=== PATIENT | female | born 1965 | race Native Hawaiian/Other Pacific Islander ===

== ENCOUNTER 2024-10-01 13:23 | Emergency (ER) | payer OTHER, SELFPAY ==
[2024-10-01 13:33] VITALS: BP 143/83; PULSE 107; RESP 16; TEMP 36.2; O2SAT 97; BMI 31.9
--- NOTE | 2024-10-01 14:15 | ED_ITS ---
HPI - General Adult General Date Seen: 10/01/24 Chief complaint: Ear/Nose/Throat Problem Stated complaint: Pain in throat that radiates to ear Time Seen by Provider: 10/01/24 14:02 Source: patient and robotype operator Mode of arrival: ambulatory Limitations: no limitations History of Present Illness HPI narrative: Patient is a 59-year-old, Telugu-speaking woman. History is obtained with the assistance of an robotype operator. Patient reports 1 week of left-sided sore throat with radiation into the ear. She notes that sometimes when she uses her phone that ear it is difficult to here and it sounds like this actually predates these symptoms a little bit but maybe is worse now. No tinnitus. She also notes that there are little bugs flying around near her bed and she thinks maybe she has 1 of those in her ear. She denies fever. It hurts to swallow but she is eating and drinking. Denies congestion or cough. Does not smoke. Related Data Home Medications ?Medication ?Instructions ?Recorded ?Confirmed No Known Home Medications 10/01/24 10/01/24 Allergies Allergy/AdvReac Type Severity Reaction Status Date / Time No Known Drug Allergies Allergy Verified 10/01/24 13:40 Review of Systems Status of ROS: Reports: 6 or more systems reviewed and unremarkable except as noted in History and below Exam Narrative: Exam Narrative: Vital signs reviewed In general, alert, nontoxic woman. Voice is normal. Head: Normocephalic, atraumatic. Eyes: Sclera clear. Pupils equal and reactive. ENT: Mucous membranes moist. Throat is normal. No evidence of abscess, exudate, edema. Dentition is intact. TMs are normal bilaterally, canals are clear. Neck: Supple without adenopathy. No glandular swelling, no erythema, no tenderness. Heart: Regular rate and rhythm without murmur. Lungs: Clear. No increased work of breathing, crackles or wheezes. Abdomen: Soft, nontender to palpation. Extremities: Well perfused, pulses intact. No significant edema. Neurologic: Alert, conversant. Speech fluent, face symmetric. Moves all extremities equally. Skin: Warm, dry well perfused. Affect: Normal. Const: Vital Signs, click to edit/add: Vital Signs - 24 hr 10/01/24 13:33 Temperature 97.2 F L Pulse Rate [Pulse Oximeter] 107 H Respiratory Rate 16 Blood Pressure [Ri ght Upper Arm] 143/83 H Pulse Oximetry 97 Oxygen Delivery Me thod Room Air Documenting provider has reviewed patient's vital signs: yes Course Course ED Course: Will check a strep, COVID, influenza, RSV. Reviewed with her that there is no evidence of any insect in the ear nor your infection. Will plan to refer her to ENT for consideration of audiology given her concerns of decreased hearing, as this does not appear to be isolated to the past week. No evidence of abscess, otitis externa, otitis media, parotitis. Viral swab and strep were negative. Symptoms are likely viral in terms of the sore throat, a little more difficult for me to determine whether there is a separate good issue going on with her hearing or whether this just represents some referred ear pain and fluid. I gave her the number for ENT, will have her follow up there. Otherwise, ibuprofen or Tylenol, fluids, rest. Return for worsening such as severe pain, inability to swallow secretions, high fevers etcetera. Vital Signs Vital signs: Initial Vital Signs Temperature 97.2 F L 10/01/24 13:33 Temperature Source Temporal Artery Scan 10/01/24 13:33 Pulse Rate 107 H 10/01/24 13:33 Respiratory Rate 16 10/01/24 13:33 Blood Pressure 143/83 H 10/01/24 13:33 Blood Pressure Mean 103 10/01/24 13:33 Blood Pressure Position Sitting 10/01/24 13:33 Pulse Oximetry 97 10/01/24 13:33 Oxygen Delivery Method Room Air 10/01/24 13:33 Vital Signs Temperature 97.2 F L 10/01/24 13:33 Pulse Rate 107 H 10/01/24 13:33 Respiratory Rate 16 10/01/24 13:33 Blood Pressure 143/83 H 10/01/24 13:33 Pulse Oximetry 97 10/01/24 13:33 Oxygen Delivery Method Room Air 10/01/24 13:33 Temperature 97.2 F L 10/01/24 13:33 Pulse Rate 107 H 10/01/24 13:33 Respiratory Rate 16 10/01/24 13:33 Blood Pressure 143/83 H 10/01/24 13:33 Pulse Oximetry 97 10/01/24 13:33 Oxygen Delivery Method Room Air 10/01/24 13:33 Medical Decision Making Lab Data Labs: Lab Results 10/01/24 Range/Units 14:27 SARS-CoV-2 (PCR) Negative SARS-CoV-2 (Negative) Influenza Type A (PCR) Negative PCR FLU A (Negative) Influenza Type B (PCR) Negative PCR FLU B (Negative) RSV (PCR) Negative PCR RSV (Negative) Group A Strep DNA NOT DETECTED (Not Detectd) Discharge Plan Discharge Clinical Impression: Pharyngitis Patient Disposition: Home, Self-Care Condition: Stable Instructions: Pharyngitis (ED) Additional Instructions: Follow-up with [facility] regarding your hearing concerns. You can call [phone] to schedule an appointment with Dr. Man. Your test today for sore throat, strep throat, COVID, influenza or RSV, are all negative, or normal. Symptoms may still be caused by a different virus. If you have worsening pain, are unable to swallow saliva, have high fevers, or other new symptoms, return to the emergency department. Otherwise, make an appointment to see Dr. Man as outlined above. Seguimiento con Otorrinolaringolog?a sobre kaya inquietudes auditivas. Puede llamar al [phone] para programar ellis tameka con el Dr. Man. [place]illas prueba de hoy para dolor de garganta, faringitis estreptoc?cica, COVID, influenza o VRS, son todas negativas o normales. Los s?ntomas a?n pueden ser causados ??por un virus diferente. Si el dolor empeora, no puede tragar saliva, tiene fiebre cat u otros s?ntomas nuevos, regrese al departamento de emergencias. De lo contrario, programe ellis tameka con el Dr. [place] natasha se describe anteriormente. Prescriptions: No Action No Known Home Medications Stand Alone Forms: [employer] Info Instructions
[2024-10-01 15:07] LABS: Strep A DNA Probe* NOT DETECTED (Not Detectd)
[2024-10-01 15:20] LABS: PCR FLU A Negative PCR FLU A (Negative); PCR FLU B Negative PCR FLU B (Negative); PCR RSV Negative PCR RSV (Negative); SARS PCR* Negative SARS-CoV-2 (Negative)
== END 2024-10-01 15:47 | disposition home or self-care (01) ==
PROVIDERS: Emergency Provider Emergency Medicine
DX: J02.9 Acute pharyngitis, unspecified (principal)
CPT/HCPCS: 87631; 87651; 99282; 99283; 99284